=== PATIENT | female | born 1965 | race Caucasian/White ===

== ENCOUNTER 2017-03-26 05:51 | Day surgery (SDC) | payer MEDICARE, MEDICAID ==
[~2017-03-26] VITALS: Ht 166.4 cm; Wt 45.5 kg
[~2017-03-26 05:51] MED LIST: ALBU8HFA IH; ASPI-556 PO; AUD NEB; BACL10TA PO; DILT120C3 PO; LIDOP TD; MONT10TA21 PO; PRED10 PO; QUET100T PO; TEMA15CA PO; TRAM50TA4 PO; VARE1TAB22 PO
[2017-03-26] MEDS ORDERED: SODIUM CHLORIDE 0.9% 1,000 ML IV ONE ×2 (06:03→06:30)
[2017-03-26] MEDS ORDERED: IBUP-2070 PO (06:42)
[2017-03-26] MEDS ORDERED: GABA-529 PO (06:42)
[2017-03-26] MEDS ORDERED: FLUT16H NASAL (06:42)
[2017-03-26] MEDS ORDERED: LEVO250S3 PO (06:42)
[2017-03-26] MEDS ORDERED: OMEP10 PO (06:42)
[2017-03-26] MEDS ORDERED: FentaNYL CITRATE-PF 100 MCG/2 ML VIAL ONE (07:48)
[2017-03-26] MEDS ORDERED: MIDAZOLAM HCL 2 MG/2 ML VIAL ONE (07:48)
[2017-03-26] MEDS ORDERED: MethylPREDNISolone SOD SUCC 125 MG/2 ML VIAL IVP ONE (08:45)
[2017-03-26] MEDS ORDERED: MethylPREDNISolone SOD SUCC 125 MG/2 ML VIAL ONE (09:00)
[2017-03-26] MEDS ORDERED: LIDOCAINE HCL 4% 50 ML SOLUTION TP ONE (17:01)
[2017-03-26] MEDS ORDERED: LIDOCAINE HCL 2% 30 ML JELLY TP ONE ×2 (17:01)
[2017-03-26] MEDS ORDERED: ALBUTEROL SULFATE 2.5 MG/0.5 ML NEB SOLUTION NEB ONE (17:01)
[2017-03-26] MEDS ORDERED: BENZOCAINE 20% 50 MCG/SPRAY 57 GM TP ONE (17:01)
[2017-03-26] MEDS ORDERED: OXYGEN THERAPY IH SCH (20:00)
== END 2017-03-26 09:50 | disposition home or self-care (01) ==
LOC: SURGERY 05:51
PROVIDERS: ATTEND Internal Medicine Critical Care Medicine
DX: J38.4 Edema of larynx (principal); B37.0 Candidal stomatitis; I10 Essential (primary) hypertension; J44.9 Chronic obstructive pulmonary disease, unspecified; F17.210 Nicotine dependence, cigarettes, uncomplicated; Z88.6 Allergy status to analgesic agent; E05.90 Thyrotoxicosis, unspecified without thyrotoxic crisis or storm
CPT/HCPCS: 31623; 31624; 71010; 87015 ×2; 87070; 87101; 87147; 87205; 87220; 94640; J2250; J2930; J3010; J7030; 88108; 88312

== ENCOUNTER 2019-03-10 05:57 | Day surgery (SDC) | payer MEDICARE, OTHER ==
[~2019-03-10] VITALS: Ht 165.1 cm; Wt 53.6 kg
[~2019-03-10 05:57] MED LIST changes: -DILT120C3 PO; +DILT120C88 PO; +FLUT16H NASAL; +GABA-529 PO; +IBUP-2070 PO; +LEVO250S3 PO; +OMEP10 PO; +SODIUM CHLORIDE 0.9% 1,000 ML IV ONE
[2019-03-10] MEDS ORDERED: BENZOCAINE 20% 50 MCG/SPRAY 57 GM TP ONE (05:58)
[2019-03-10] MEDS ORDERED: LIDOCAINE 4% 50 ML SOLUTION TP ONE (05:58)
[2019-03-10] MEDS ORDERED: ALBUTEROL SULFATE 2.5 MG/0.5 ML NEB SOLUTION NEB ONE (05:58)
[2019-03-10] MEDS ORDERED: LIDOCAINE 2% 30 ML JELLY TP ONE (05:58)
[2019-03-10] MEDS ORDERED: SODIUM CHLORIDE 0.9% 1,000 ML IV ONE (06:30)
[2019-03-10] MEDS ORDERED: RANI150T7 PO (07:10)
[2019-03-10] MEDS ORDERED: PROM6.2522 PO (07:10)
[2019-03-10] MEDS ORDERED: GABA-531 PO (07:10)
[2019-03-10] MEDS ORDERED: TRAZ-220 PO (07:10)
[2019-03-10] MEDS ORDERED: QUET100T PO (07:10)
[2019-03-10] MEDS ORDERED: PRED20 PO (07:10)
[2019-03-10] MEDS ORDERED: LORA10TA7 PO (07:10)
[2019-03-10] MEDS ORDERED: ONDA4 PO (07:10)
[2019-03-10] MEDS ORDERED: ESCI10TA PO (07:10)
[2019-03-10] MEDS ORDERED: DILT60SR PO (07:10)
[2019-03-10] MEDS ORDERED: OMEP20 PO (07:10)
[2019-03-10] MEDS ORDERED: LEVO500 PO (07:10)
[2019-03-10] MEDS ORDERED: MIDAZOLAM HCL 2 MG/2 ML VIAL ONE (08:28)
[2019-03-10] MEDS ORDERED: FentaNYL CITRATE-PF 100 MCG/2 ML VIAL ONE (08:28)
[2019-03-10] MEDS ORDERED: MethylPREDNISolone SOD SUCC 125 MG/2 ML VIAL ONE (08:58)
[2019-03-10] MEDS ORDERED: MethylPREDNISolone SOD SUCC 125 MG/2 ML VIAL IVP ONE (09:00)
[2019-03-10] MEDS ORDERED: OXYGEN THERAPY IH SCH (20:00)
== END 2019-03-10 10:25 | disposition home or self-care (01) ==
LOC: SURGERY 05:57
PROVIDERS: ATTEND Internal Medicine Critical Care Medicine
DX: J38.4 Edema of larynx (principal); B37.0 Candidal stomatitis; J44.9 Chronic obstructive pulmonary disease, unspecified; I25.10 Atherosclerotic heart disease of native coronary artery without angina pectoris; F17.210 Nicotine dependence, cigarettes, uncomplicated
CPT/HCPCS: 31623; 31624; 71045; 87015; 87070; 87077; 87101; 87186; 87205; 87206; 87220; 88108; 88312; J2250; J2930; J3010; J7030